=== PATIENT | male | born 2000 | race Hispanic/Latino ===

== ENCOUNTER 2020-04-08 13:09 | Emergency (ER) | payer OTHER ==
[2020-04-09 14:17] LABS: SARS-CoV-2 MS2 Positive; SARS-CoV-2 N Gene Positive; SARS-CoV-2 S Gene Positive; SARS-CoV-2 orf1ab Positive
== END 2020-04-08 14:16 | disposition home or self-care (01) ==
LOC: ERS 13:09
DX: U07.1 COVID-19 (principal)
CPT/HCPCS: 87635; 99284; U0003